=== PATIENT | male | born 1970 | race Native Hawaiian/Other Pacific Islander ===

== ENCOUNTER 2020-08-27 09:56 | Emergency (ER) | payer OTHER ==
[~2020-08-27] VITALS: Ht 175.3 cm; Wt 104.3 kg
[2020-08-27 09:56] VITALS: TEMP 98.7
[2020-08-27 11:14] LABS: PLATELET COUNT 233 K/uL (142-355)
[2020-08-27 11:21] LABS: POTASSIUM 4.2 mmol/L (3.6-5.2)
[2020-08-27 12:10] VITALS: BP 167/80
== END 2020-08-27 12:10 | disposition home or self-care (01) ==
LOC: ED 10:10
PROVIDERS: Emergency Medicine Emergency Medical Services
DX: S46.091A Other injury of muscle(s) and tendon(s) of the rotator cuff of right shoulder, initial encounter (principal); I10 Essential (primary) hypertension; F17.220 Nicotine dependence, chewing tobacco, uncomplicated; X50.0XXA Overexertion from strenuous movement or load, initial encounter; Y92.89 Other specified places as the place of occurrence of the external cause
CPT/HCPCS: 80053; 85027; 99283

== ENCOUNTER 2020-09-15 16:02 | Emergency (ER) | payer OTHER ==
[~2020-09-15] VITALS: Ht 175.3 cm; Wt 104.3 kg
[2020-09-15 16:35] VITALS: TEMP 98.6
[2020-09-15 18:00] VITALS: BP 151/92
== END 2020-09-15 18:00 | disposition home or self-care (01) ==
LOC: ED 16:02
DX: S46.811A Strain of other muscles, fascia and tendons at shoulder and upper arm level, right arm, initial encounter (principal); I10 Essential (primary) hypertension; M25.512 Pain in left shoulder
CPT/HCPCS: 96372; 99283; J1885